=== PATIENT | female | born 1945 | race Caucasian/White ===

== ENCOUNTER → 2021-02-28 08:25 | Outpatient (CLI) | payer MEDICARE, BC, SELFPAY | PROVIDERS: PCP Family Medicine; Visit Provider Physician Assistant Medical | DX: N39.0 Urinary tract infection, site not specified (principal) | CPT/HCPCS: 87077; 87086; 87186 ==

== ENCOUNTER → 2021-03-25 11:09 | Outpatient (CLI) | payer MEDICARE, BC, SELFPAY | PROVIDERS: PCP Family Medicine; Visit Provider Family Medicine | DX: N39.0 Urinary tract infection, site not specified (principal); R30.0 Dysuria | CPT/HCPCS: 87086 ==

== ENCOUNTER → 2023-12-28 14:19 | Outpatient (CLI) | payer MEDICARE, BC, SELFPAY ==
[2023-12-28 19:16] LABS: Albumin 4.2 g/dL (3.5-5.0); BUN Creatinine Ratio 26.3 (6-22); Blood Urea Nitrogen 20 mg/dL (7-17); Calcium 9.3 mg/dL (8.4-10.2); Carbon Dioxide 27 mmol/L (22-32); Chloride 99 mmol/L (98-107); Estimated Glomerular Filt Rate > 60 mL/min (>60); Glucose 120 mg/dL (80-110); HEMOLYSIS 20 (0-50); Magnesium 2.2 mg/dL (1.6-2.3); Phosphorous 3.8 mg/dL (2.8-4.1); Potassium 4.2 mmol/L (3.4-5.1); Sodium 132 mmol/L (137-145)
== END ==
PROVIDERS: PCP Physician Assistant Medical; Visit Provider Internal Medicine Clinical Cardiac Electrophysiology
DX: Z79.899 Other long term (current) drug therapy (principal)
CPT/HCPCS: 80069; 83735

== ENCOUNTER → 2024-02-04 12:41 | Outpatient (CLI) | payer MEDICARE, BC, SELFPAY | PROVIDERS: PCP Physician Assistant Medical; Visit Provider Family Medicine | DX: N39.0 Urinary tract infection, site not specified (principal) | CPT/HCPCS: 87086 ==

== ENCOUNTER 2024-05-25 10:45 | Outpatient (RCR) | payer MEDICARE, BC, SELFPAY ==
--- NOTE | 2024-04-03 15:00 | PT.OPPOC ---
Physical, Occupational & Speech Therapy At [facility] Current Diagnoses Malignant neoplasm of unspecified site of unspecified female breast (04/03/24) Visit Care Team Role Provider Type Paola Oakley PA-C Family Provider Advanced Architecture Instructor Primary Care Provider Specialty: Medical Address: [place], [address] Email: [email or web address] LAURA Echeverria Attending Provider Non-Staff Referring Provider Specialty: Nursing Address: [address] [place] [address], [id number] Email: Plan Of Care PT-OP-B Current Condition Start: 03/30/24 16:55 Freq: Status: Active Protocol: Document 04/03/24 10:43 SAK (Rec: 04/03/24 11:06 [facility] [id number]) Current Condition History of Current Condition Onset Date 08/24 Current Complaints R breast lymphedema History of Current Condition s/p right lumpectomy and radiation finished 10/08/23 ( fast forward 5), has had significant swelling, right breast larger than left even though following radiation it was expected right breast would be smaller. Tumor was up high chest wall and pectoral muscles, reports feeling tightness in that area. Has done ROM exercises for her right am, feels has normal ROM . Also biopsy lymph node left. Now on endocrine therapy, sees medical oncologist in May. Posterior left UE numbness. Initially after surgery wore compression bra, hasn't worn for a long time, wears underwire bra. Not educated in lymphedema or exercise after surgery. Prior Treatments and Tests see above. Treatment Goals Patient/Caregiver Goals Improve soft tissue mobility and learn self massage for breast swelling. PT-OP-T Assessment and Plan Start: 03/30/24 16:55 Freq: Status: Active Protocol: Document 04/03/24 10:43 SAK (Rec: 04/04/24 12:21 [facility] [id number]) Physical Therapy Assessment Rehab Potential Rehabilitation Potential Good Evaluation Complexity Number of Personal Factors/Comorbidities 1-2 Number of Body Systems Impaired 3 Clinical Presentation at Evaluation Evolving Impairments Impairments Edema,Integument,Soft Tissue Mobility Goals Three Impairment dec chest and subaxillary tissue mobility and axillary cording present Short Term Goal (STG) Patient to be instructed in HEP for purposes of flexibility and dec axillary cording STG Duration 05/12/24 Curriculum Assistant Goal (LTG) Improve chest and subaxillary soft tissue mobility and eliminate axillary cording to allow for full motion of soft tissues in chest and subaxillary region LTG Duration 07/01/24 Two Impairment decreased scar mobility causing dec lymph flow and pain Short Term Goal (STG) Initiate scar mobility and instruct patient in self massage to scar STG Duration 05/12/24 Curriculum Assistant Goal (LTG) Improve scar mobility to WNL to facilitate improved lymphatic flow and dec pain LTG Duration 07/01/24 One Impairment lymphedema left breast and subaxillary region Short Term Goal (STG) Patient will be instructed in all aspects of lymphedema self -care to include skin care, self-massage, self-bandaging/ compression options, and lymphedema exercises. STG Duration 05/12/24 Curriculum Assistant Goal (LTG) Decrease patient?s lymphedema to a stable level (no increase or decrease greater than 1 cm over the course of 1 week), patient to be independent with all aspects of self-care for lymphedema, and will obtain appropriate compression garment for lymphedema management in the home. LTG Duration 07/01/24 Assessment Summary Assessment Patient presents to PT with lymphedema left breast and subaxillary region with axillary cording present 3 inches long and scar tissue from lumpectomy as well as subaxillary tissues with decreased mobility. Does not appear to have lymphedema in left UE, baseline measurements taken claude UE's and symmetrical. Initiated complete decongestive therapy including patient education regarding physiology of lymphedema and components of treatment. MLD initiated with education in self MLD with online resources given, patient educated in initial HEP to address soft tissue tightness, discussed compression options with trial WearEase bra issued for trial due to good fit. Patient highly motivated and demonstrated good understanding. POC was discussed and patient was in agreement. Physical Therapy Plan Frequency and Duration Frequency of Treatment 20 Duration of treatment (weeks) 12 Plan of Care Start Date 04/03/24 Plan of Care End Date 07/01/24 Therapeutic Interventions Therapeutic Interventions Lymphedema Management,Manual Therapy,Patient/Caregiver Education,Self-Care/Home Management,Soft Tissue Mobilization,Taping, Therapeutic Activities, Therapeutic Exercises Next Visit Focus/Plan Next Note Type Treatment Note Next Visit Plan Assess response to Wear Ease bra, continue with complete decongestive therapy including patient education, manual techniques including scar and axillary cording mobilization and MLD, exercise, compression . Plan of Care Dates Plan of Care Start Date 04/03/24 Plan of Care End Date 07/01/24 Electronically Signed by: Lanette Dent, PT 04/04/24 1500 If you are in agreement with this Plan of Care, please return a signed and dated copy. I have reviewed this Plan of Care and certify that the skilled therapy services above are required to meet the patient?s needs. Physician Signature Date Printed Name and Credentials Clinical Instructor Signature Printed Name and Credentials
--- NOTE | 2024-04-03 15:00 | PT.OIE ---
Addendum entered and electronically signed by Lanette Dent, PT 04/10/24 12:15: Additional diagnosis: Lymphedema, not elsewear classified. 189.0 Soft tissue disorder M79.9 Original Note: Current Diagnoses Malignant neoplasm of unspecified site of unspecified female breast (04/03/24) Visit Care Team Role Provider Type Paola Oakley PA-C Family Provider Advanced Cutting And Boning Supervisor Primary Care Provider Specialty: Medical Address: [address] [place] [address], [address] Email: [email or web address] LAURA Echeverria Attending Provider Non-Staff Referring Provider Specialty: Nursing Address: [address] [place] [address], [id number] Email: Physical Therapy Initial Evaluation PT-OP-A Visit Information Start: 03/30/24 16:55 Freq: Status: Active Protocol: Document 04/03/24 10:43 SAK (Rec: 04/03/24 11:06 [facility] [id number]) Out-Patient Physical Therapy Visit Information Visit Information Visit Type Initial Evaluation Visit Start Time 10:45 Visit Stop Time 12:13 Visit Number 1 Evaluation Information Evaluation Date 04/03/24 Precautions Precautions osteoporosis; having infusions 2x/year, a-fib PT-OP-B Current Condition Start: 03/30/24 16:55 Freq: Status: Active Protocol: Document 04/03/24 10:43 SAK (Rec: 04/03/24 11:06 [facility] [id number]) Current Condition History of Current Condition Onset Date 08/24 Current Complaints R breast lymphedema History of Current Condition s/p right lumpectomy and radiation finished 10/08/23 ( fast forward 5), has had significant swelling, right breast larger than left even though following radiation it was expected right breast would be smaller. Tumor was up high chest wall and pectoral muscles, reports feeling tightness in that area. Has done ROM exercises for her right am, feels has normal ROM . Also biopsy lymph node left. Now on endocrine therapy, sees medical oncologist in May. Posterior left UE numbness. Initially after surgery wore compression bra, hasn't worn for a long time, wears underwire bra. Not educated in lymphedema or exercise after surgery. Prior Treatments and Tests see above. Treatment Goals Patient/Caregiver Goals Improve soft tissue mobility and learn self massage for breast swelling. PT-OP-C Subjective Start: 03/30/24 16:55 Freq: Status: Active Protocol: Document 04/03/24 10:43 SAK (Rec: 04/04/24 12:21 [facility] [id number]) Patient Questionnaires Lymphedema Life Impact Score Lymphedema Score 25% OP-PT Pain Assessment Pain Assessment Grid Paper Pain Assessment Grid Completed Yes Location left breast Intensity 1 Scale Used Numeric (0 - 10) PT-OP-H Neuro Start: 03/30/24 16:55 Freq: Status: Active Protocol: Document 04/03/24 10:43 SAK (Rec: 04/04/24 12:21 [facility] [id number]) Sensation Evaluation Gross Sensation Gross Sensation Left LE Impaired,Trunk Impaired Sensation Description Numbness PT-OP-J Posture/Palpation/Skin Start: 03/30/24 16:55 Freq: Status: Active Protocol: Document 04/03/24 10:43 SAK (Rec: 04/04/24 12:21 [facility] [id number]) Palpation Assessment Location left axilla Palpation Findings Soft Tissue Tightness Palpation Details axillary cording approx 3 long left breast Palpation Findings Edema,Soft Tissue Tightness Palpation Details lateral and subaxillary Skin Assessment Edema Assessment Left Edema Type Non-Pitting Edema Appearance Puffy,Taut Subjective Edema Description Tightness Comments breast Incisional Assessment Incision Appearance/Comments well healed, no signs or symptoms of infection, poor mobility PT-OP-K Range of Motion Start: 03/30/24 16:55 Freq: Status: Active Protocol: Document 04/03/24 10:43 SAK (Rec: 04/04/24 12:21 [facility] [id number]) Cervical Spine Range of Motion Cervical Spine Active Comments WNL Shoulder Goniometric Range of Motion Shoulder Left Shoulder ROM WFL No Comments subaxillary tightness in soft tissue and palpable axillary cording on left decreased flexibility throughout chest musculature and decreased scar mobility with elevation, hor abd Right Shoulder ROM WFL Yes Shoulder ROM Limitations Shoulder ROM Limitations Soft Tissue Tightness PT-OP-N Lymphedema Start: 03/30/24 16:55 Freq: Status: Active Protocol: Document 04/03/24 10:43 SAK (Rec: 04/03/24 12:17 SAK [id number]) Lymphedema Measurements Upper Extremity Circumference Measurements Left Affected MCP 19.2 cm Dorsum of Hand 20.1 cm Wrist 16.2 cm 10 cm From Wrist Crease 18.3 cm 20 cm From Wrist Crease 22.5 cm 30 cm From Wrist Crease 25.2 cm 40 cm From Wrist Crease 26.2 cm Elbow Joint 23.7 cm Right Affected MCP 19.3 cm Dorsum of Hand 20 cm Wrist 16.1 cm 10 cm From Wrist Crease 17.8 cm 20 cm From Wrist Crease 23.6 cm 30 cm From Wrist Crease 25 cm 40 cm From Wrist Crease 26.4 cm Elbow Joint 23.6 cm - subax:85.3 nipple line:88.5 under breast:80.9 Comments Lymphedema Comments lymphedema present left breast and subaxillary region not in left UE PT-OP-Q Treatments Start: 03/30/24 16:55 Freq: Status: Active Protocol: Document 04/03/24 10:43 RICKEY (Rec: 04/04/24 12:21 [facility] [id number]) Lymphedema Treatment Manual Lymphatic Drainage Location left breast Duration 15 m Comments initial instruction for self massage Lymphedema Wrapping Materials Wear ease bra sample Other Trial WearEase bra size med for patient to trial for 2 days, good fit. Sequential Lymphedema Exercises Comments instructed in sidelying open book and arm tetlin exercises Compression Garment Assessment Compression Garment Assessment Details good fit trial Wear Ease bra Patient Education Lymphedema Pathology instructed Lymphedema Prevention instructed Lymphedema Precautions instructed Compression Garments discussed options and shown online Self Manual Lymphatic Drainage instructed and issued online [facility] resource Sequential Lymphedema Exercises instructed and issued handout PT-OP-T Assessment and Plan Start: 03/30/24 16:55 Freq: Status: Active Protocol: Document 04/03/24 10:43 RICKEY (Rec: 04/04/24 12:21 [facility] [id number]) Physical Therapy Assessment Rehab Potential Rehabilitation Potential Good Evaluation Complexity Number of Personal Factors/Comorbidities 1-2 Number of Body Systems Impaired 3 Clinical Presentation at Evaluation Evolving Impairments Impairments Edema,Integument,Soft Tissue Mobility Goals Three Impairment dec chest and subaxillary tissue mobility and axillary cording present Short Term Goal (STG) Patient to be instructed in HEP for purposes of flexibility and dec axillary cording STG Duration 05/12/24 Senior Living Goal (LTG) Improve chest and subaxillary soft tissue mobility and eliminate axillary cording to allow for full motion of soft tissues in chest and subaxillary region LTG Duration 07/01/24 Two Impairment decreased scar mobility causing dec lymph flow and pain Short Term Goal (STG) Initiate scar mobility and instruct patient in self massage to scar STG Duration 05/12/24 Senior Living Goal (LTG) Improve scar mobility to WNL to facilitate improved lymphatic flow and dec pain LTG Duration 07/01/24 One Impairment lymphedema left breast and subaxillary region Short Term Goal (STG) Patient will be instructed in all aspects of lymphedema self -care to include skin care, self-massage, self-bandaging/ compression options, and lymphedema exercises. STG Duration 05/12/24 Senior Living Goal (LTG) Decrease patient?s lymphedema to a stable level (no increase or decrease greater than 1 cm over the course of 1 week), patient to be independent with all aspects of self-care for lymphedema, and will obtain appropriate compression garment for lymphedema management in the home. LTG Duration 07/01/24 Assessment Summary Assessment Patient presents to PT with lymphedema left breast and subaxillary region with axillary cording present 3 inches long and scar tissue from lumpectomy as well as subaxillary tissues with decreased mobility. Does not appear to have lymphedema in left UE, baseline measurements taken claude UE's and symmetrical. Initiated complete decongestive therapy including patient education regarding physiology of lymphedema and components of treatment. MLD initiated with education in self MLD with online resources given, patient educated in initial HEP to address soft tissue tightness, discussed compression options with trial WearEase bra issued for trial due to good fit. Patient highly motivated and demonstrated good understanding. POC was discussed and patient was in agreement. Physical Therapy Plan Frequency and Duration Frequency of Treatment 20 Duration of treatment (weeks) 12 Plan of Care Start Date 04/03/24 Plan of Care End Date 07/01/24 Therapeutic Interventions Therapeutic Interventions Lymphedema Management,Manual Therapy,Patient/Caregiver Education,Self-Care/Home Management,Soft Tissue Mobilization,Taping, Therapeutic Activities, Therapeutic Exercises Next Visit Focus/Plan Next Note Type Treatment Note Next Visit Plan Assess response to Wear Ease bra, continue with complete decongestive therapy including patient education, manual techniques including scar and axillary cording mobilization and MLD, exercise, compression .
--- NOTE | 2024-04-05 14:55 | PT.OTN ---
Current Diagnoses Malignant neoplasm of unspecified site of unspecified female breast (04/05/24) Physical Therapy Treatment Note PT-OP-A Visit Information Start: 03/30/24 16:55 Freq: Status: Active Protocol: Document 04/05/24 10:47 SAK (Rec: 04/05/24 11:28 [facility] [id number]) Out-Patient Physical Therapy Visit Information Visit Information Visit Type Treatment Note Visit Start Time 10:47 Visit Stop Time 12:15 Visit Number 2 Evaluation Information Evaluation Date 04/03/24 Precautions Precautions osteoporosis; having infusions 2x/year, a-fib PT-OP-B Current Condition Start: 03/30/24 16:55 Freq: Status: Active Protocol: Document 04/05/24 10:47 SAK (Rec: 04/05/24 11:28 [facility] [id number]) Current Condition History of Current Condition Onset Date 08/24 Current Complaints R breast lymphedema History of Current Condition s/p right lumpectomy and radiation finished 10/08/23 ( fast forward 5), has had significant swelling, right breast larger than left even though following radiation it was expected right breast would be smaller. Tumor was up high chest wall and pectoral muscles, reports feeling tightness in that area. Has done ROM exercises for her right am, feels has normal ROM . Also biopsy lymph node left. Now on endocrine therapy, sees medical oncologist in May. Posterior left UE numbness. Initially after surgery wore compression bra, hasn't worn for a long time, wears underwire bra. Not educated in lymphedema or exercise after surgery. Prior Treatments and Tests see above. Treatment Goals Patient/Caregiver Goals Improve soft tissue mobility and learn self massage for breast swelling. PT-OP-C Subjective Start: 03/30/24 16:55 Freq: Status: Active Protocol: Document 04/05/24 10:47 SAK (Rec: 04/05/24 11:28 [facility] [id number]) OP-PT Subjective Patient Comments Patient Comments Reports liked the WEar East bra, felt beter compression and better coverage on body. Not wearing today, thinking need return. Does report a lump under right axilla, lateral chest, not sure if from exercise. Watched [facility] and followed with self massage. PT-OP-H Neuro Start: 03/30/24 16:55 Freq: Status: Active Protocol: Document 04/03/24 10:43 RICKEY (Rec: 04/04/24 12:21 [facility] [id number]) Sensation Evaluation Gross Sensation Gross Sensation Left LE Impaired,Trunk Impaired Sensation Description Numbness PT-OP-J Posture/Palpation/Skin Start: 03/30/24 16:55 Freq: Status: Active Protocol: Document 04/03/24 10:43 RICKEY (Rec: 04/04/24 12:21 [facility] [id number]) Palpation Assessment Location left axilla Palpation Findings Soft Tissue Tightness Palpation Details axillary cording approx 3 long left breast Palpation Findings Edema,Soft Tissue Tightness Palpation Details lateral and subaxillary Skin Assessment Edema Assessment Left Edema Type Non-Pitting Edema Appearance Puffy,Taut Subjective Edema Description Tightness Comments breast Incisional Assessment Incision Appearance/Comments well healed, no signs or symptoms of infection, poor mobility PT-OP-K Range of Motion Start: 03/30/24 16:55 Freq: Status: Active Protocol: Document 04/03/24 10:43 RICKEY (Rec: 04/04/24 12:21 [facility] [id number]) Cervical Spine Range of Motion Cervical Spine Active Comments WNL Shoulder Goniometric Range of Motion Shoulder Left Shoulder ROM WFL No Comments subaxillary tightness in soft tissue and palpable axillary cording on left decreased flexibility throughout chest musculature and decreased scar mobility with elevation, hor abd Right Shoulder ROM WFL Yes Shoulder ROM Limitations Shoulder ROM Limitations Soft Tissue Tightness PT-OP-N Lymphedema Start: 03/30/24 16:55 Freq: Status: Active Protocol: Document 04/03/24 10:43 RICKEY (Rec: 04/03/24 12:17 [facility] [id number]) Lymphedema Measurements Upper Extremity Circumference Measurements Left Affected MCP 19.2 cm Dorsum of Hand 20.1 cm Wrist 16.2 cm 10 cm From Wrist Crease 18.3 cm 20 cm From Wrist Crease 22.5 cm 30 cm From Wrist Crease 25.2 cm 40 cm From Wrist Crease 26.2 cm Elbow Joint 23.7 cm Right Affected MCP 19.3 cm Dorsum of Hand 20 cm Wrist 16.1 cm 10 cm From Wrist Crease 17.8 cm 20 cm From Wrist Crease 23.6 cm 30 cm From Wrist Crease 25 cm 40 cm From Wrist Crease 26.4 cm Elbow Joint 23.6 cm - subax:85.3 nipple line:88.5 under breast:80.9 Comments Lymphedema Comments lymphedema present left breast and subaxillary region not in left UE PT-OP-Q Treatments Start: 03/30/24 16:55 Freq: Status: Active Protocol: Document 04/05/24 10:47 SAK (Rec: 04/08/24 14:55 [facility] [id number]) Lymphedema Treatment Manual Lymphatic Drainage Location for left breast subaxillary, chest wall Duration 45 Comments review technique for self massage Lymphedema Wrapping Materials Patient to use Wear East bra over weekend due to good fit and coverage. Discussed PT recommendation for compression shirt vs sleeve to be able to capture subaxillary and chest region. Sequential Lymphedema Exercises Comments review deep breathing open book and arm beaver ex Compression Garment Assessment Compression Garment Assessment Details good fit trial Wear Ease bra Patient Education Lymphedema Pathology review Compression Garments further discussion Self Manual Lymphatic Drainage review Sequential Lymphedema Exercises review HEP as above PT-OP-T Assessment and Plan Start: 03/30/24 16:55 Freq: Status: Active Protocol: Document 04/05/24 10:47 SAK (Rec: 04/05/24 11:28 [facility] [id number]) Physical Therapy Assessment Impairments Impairments Edema,Integument,Soft Tissue Mobility Goals Three Impairment dec chest and subaxillary tissue mobility and axillary cording present Short Term Goal (STG) Patient to be instructed in HEP for purposes of flexibility and dec axillary cording STG Duration 05/12/24 Correction Goal (LTG) Improve chest and subaxillary soft tissue mobility and eliminate axillary cording to allow for full motion of soft tissues in chest and subaxillary region LTG Duration 07/01/24 Two Impairment decreased scar mobility causing dec lymph flow and pain Short Term Goal (STG) Initiate scar mobility and instruct patient in self massage to scar STG Duration 05/12/24 Correction Goal (LTG) Improve scar mobility to WNL to facilitate improved lymphatic flow and dec pain LTG Duration 07/01/24 One Impairment lymphedema left breast and subaxillary region Short Term Goal (STG) Patient will be instructed in all aspects of lymphedema self -care to include skin care, self-massage, self-bandaging/ compression options, and lymphedema exercises. STG Duration 05/12/24 Toe Laster Goal (LTG) Decrease patient?s lymphedema to a stable level (no increase or decrease greater than 1 cm over the course of 1 week), patient to be independent with all aspects of self-care for lymphedema, and will obtain appropriate compression garment for lymphedema management in the home. LTG Duration 07/01/24 Assessment Summary Assessment Continued CDT, loaned WEar Ease bra for weekend, measurements not taken due to not wearing. Reviewed self MLD technique, talked options compression with looking further online together and PT email [facility] as patient has already called to discuss and make appointment for garment fitting. Feel patient would benefit from Wear-Ease Shirt with pocket for foam for subaxillary region and axillary cording. Physical Therapy Plan Frequency and Duration Frequency of Treatment 20 Duration of treatment (weeks) 12 Plan of Care Start Date 04/03/24 Plan of Care End Date 07/01/24 Therapeutic Interventions Therapeutic Interventions Lymphedema Management,Manual Therapy,Patient/Caregiver Education,Self-Care/Home Management,Soft Tissue Mobilization,Taping, Therapeutic Activities, Therapeutic Exercises Next Visit Focus/Plan Next Note Type Treatment Note Next Visit Plan Continue PT for CDT to decrease breast and subaxillary edema, decrease axillary cording, and improve scar mobility. Work with [facility] in [place] to help patient obtain appropriate compression garment. Discuss subclinical stage of lymphedema
--- NOTE | 2024-04-10 16:33 | PT.OTN ---
Current Diagnoses Malignant neoplasm of unspecified site of unspecified female breast (04/10/24) Lymphedema, not elsewhere classified (04/10/24) Physical Therapy Treatment Note PT-OP-A Visit Information Start: 03/30/24 16:55 Freq: Status: Active Protocol: Document 04/10/24 10:37 SAK (Rec: 04/10/24 11:27 [facility] [id number]) Out-Patient Physical Therapy Visit Information Visit Information Visit Type Treatment Note Visit Start Time 10:46 Visit Stop Time 12:13 Visit Number 3 Evaluation Information Evaluation Date 04/03/24 Precautions Precautions osteoporosis; having infusions 2x/year, a-fib PT-OP-B Current Condition Start: 03/30/24 16:55 Freq: Status: Active Protocol: Document 04/10/24 10:37 SAK (Rec: 04/10/24 11:27 [facility] [id number]) Current Condition History of Current Condition Onset Date 08/24 Current Complaints R breast lymphedema History of Current Condition s/p right lumpectomy and radiation finished 10/08/23 ( fast forward 5), has had significant swelling, right breast larger than left even though following radiation it was expected right breast would be smaller. Tumor was up high chest wall and pectoral muscles, reports feeling tightness in that area. Has done ROM exercises for her right am, feels has normal ROM . Also biopsy lymph node left. Now on endocrine therapy, sees medical oncologist in May. Posterior left UE numbness. Initially after surgery wore compression bra, hasn't worn for a long time, wears underwire bra. Not educated in lymphedema or exercise after surgery. Prior Treatments and Tests see above. Treatment Goals Patient/Caregiver Goals Improve soft tissue mobility and learn self massage for breast swelling. PT-OP-C Subjective Start: 03/30/24 16:55 Freq: Status: Active Protocol: Document 04/10/24 10:37 SAK (Rec: 04/10/24 11:27 [facility] [id number]) OP-PT Subjective Patient Comments Patient Comments Wearing Wear Ease bra consistently during the day, removes at night, is sore in upper chest. Wore loaner compression sleeve but it slid down by the time she got home so she took off, too small. PT-OP-H Neuro Start: 03/30/24 16:55 Freq: Status: Active Protocol: Document 04/03/24 10:43 [facility] (Rec: 04/04/24 12:21 [facility] [id number]) Sensation Evaluation Gross Sensation Gross Sensation Left LE Impaired,Trunk Impaired Sensation Description Numbness PT-OP-J Posture/Palpation/Skin Start: 03/30/24 16:55 Freq: Status: Active Protocol: Document 04/03/24 10:43 SAK (Rec: 04/04/24 12:21 [facility] [id number]) Palpation Assessment Location left axilla Palpation Findings Soft Tissue Tightness Palpation Details axillary cording approx 3 long left breast Palpation Findings Edema,Soft Tissue Tightness Palpation Details lateral and subaxillary Skin Assessment Edema Assessment Left Edema Type Non-Pitting Edema Appearance Puffy,Taut Subjective Edema Description Tightness Comments breast Incisional Assessment Incision Appearance/Comments well healed, no signs or symptoms of infection, poor mobility PT-OP-K Range of Motion Start: 03/30/24 16:55 Freq: Status: Active Protocol: Document 04/03/24 10:43 [facility] (Rec: 04/04/24 12:21 [facility] [id number]) Cervical Spine Range of Motion Cervical Spine Active Comments WNL Shoulder Goniometric Range of Motion Shoulder Left Shoulder ROM WFL No Comments subaxillary tightness in soft tissue and palpable axillary cording on left decreased flexibility throughout chest musculature and decreased scar mobility with elevation, hor abd Right Shoulder ROM WFL Yes Shoulder ROM Limitations Shoulder ROM Limitations Soft Tissue Tightness PT-OP-N Lymphedema Start: 03/30/24 16:55 Freq: Status: Active Protocol: Document 04/10/24 10:37 [facility] (Rec: 04/10/24 11:27 [facility] [id number]) Lymphedema Measurements Upper Extremity Circumference Measurements Right Affected - 86.4 87.8 80.8 PT-OP-Q Treatments Start: 03/30/24 16:55 Freq: Status: Active Protocol: Document 04/10/24 16:27 [facility] (Rec: 04/10/24 16:33 [facility] [id number]) Lymphedema Treatment Manual Lymphatic Drainage Location for left breast, subaxillary, chest wall Duration 45 Comments review technique for self massage Lymphedema Wrapping Materials Patient to use Wear [place] bra over weekend due to good fit and coverage with chip bag trial as well inside bra and KT tape as below. Sequential Lymphedema Exercises Comments open book, arm [employer] [place] band, deep breathing 2 sets of 5 Compression Garment Assessment Compression Garment Assessment Details Patient further borrowing Wear Ease with fabricated chip bag inside bra to assess benefit as decides on garments. PT encourages compression sleeve, bra, and shirt. Patient Education Lymphedema Pathology educated in sublinical stages of lymphedem Lymphedema Prevention issued written material Lymphedema Precautions issued written material Compression Garments recommend sleeve, bra, and shirt Self Manual Lymphatic Drainage review Other Other trial KT tape fan strip supraaclavicular extending across scar, 2 fan strip from spine posterior around subaxillary and lateral trunk to breast. PT-OP-T Assessment and Plan Start: 03/30/24 16:55 Freq: Status: Active Protocol: Document 04/10/24 10:37 [facility] (Rec: 04/10/24 11:27 [facility] [id number]) Physical Therapy Assessment Impairments Impairments Edema,Integument,Soft Tissue Mobility Goals Three Impairment dec chest and subaxillary tissue mobility and axillary cording present Short Term Goal (STG) Patient to be instructed in HEP for purposes of flexibility and dec axillary cording STG Duration 05/12/24 Benefits Technician Goal (LTG) Improve chest and subaxillary soft tissue mobility and eliminate axillary cording to allow for full motion of soft tissues in chest and subaxillary region LTG Duration 07/01/24 Two Impairment decreased scar mobility causing dec lymph flow and pain Short Term Goal (STG) Initiate scar mobility and instruct patient in self massage to scar STG Duration 05/12/24 Benefits Technician Goal (LTG) Improve scar mobility to WNL to facilitate improved lymphatic flow and dec pain LTG Duration 07/01/24 One Impairment lymphedema left breast and subaxillary region Short Term Goal (STG) Patient will be instructed in all aspects of lymphedema self -care to include skin care, self-massage, self-bandaging/ compression options, and lymphedema exercises. STG Duration 05/12/24 Benefits Technician Goal (LTG) Decrease patient?s lymphedema to a stable level (no increase or decrease greater than 1 cm over the course of 1 week), patient to be independent with all aspects of self-care for lymphedema, and will obtain appropriate compression garment for lymphedema management in the home. LTG Duration 07/01/24 Assessment Summary Assessment Despite patient verbalizing she didn't think her ROM was improved, PT noted improved ROM with both circles and open book exercises and reduction in axillary cording to minimally palpable. Circumferential measurements increased subaxillary but decreased at nipple line, appears Wear [place] bra helpful in reducing breast lymphedema, but patient does not have subaxillary compression to facilitate further reduction. Discussed compression options with PT recommending sleeve especially for air travel, Wear Ease bra, and Wear ease shirt/axillary T that has pocket for swell spot. Patient constent with wearing compression bra. Patient instructed in stages of lymphedema including her high risk of developing in her arm as already in axilla, need to monitor for any new symptoms. Patient demonstrated good understanding. Physical Therapy Plan Frequency and Duration Frequency of Treatment 20 Duration of treatment (weeks) 12 Plan of Care Start Date 04/03/24 Plan of Care End Date 07/01/24 Therapeutic Interventions Therapeutic Interventions Lymphedema Management,Manual Therapy,Patient/Caregiver Education,Self-Care/Home Management,Soft Tissue Mobilization,Taping, Therapeutic Activities, Therapeutic Exercises Next Visit Focus/Plan Next Note Type Treatment Note Next Visit Plan Continue PT for CDT to decrease breast and subaxillary edema, decrease axillary cording, and improve scar mobility. Work with [facility] in [place] to help patient obtain appropriate compression garment.
--- NOTE | 2024-04-12 12:13 | PT.OTN ---
Current Diagnoses Malignant neoplasm of unspecified site of unspecified female breast (04/12/24) Lymphedema, not elsewhere classified (04/12/24) Physical Therapy Treatment Note PT-OP-A Visit Information Start: 03/30/24 16:55 Freq: Status: Active Protocol: Document 04/12/24 10:43 SAK (Rec: 04/12/24 11:13 [facility] [id number]) Out-Patient Physical Therapy Visit Information Visit Information Visit Type Treatment Note Visit Start Time 10:46 Visit Stop Time 12:00 Visit Number 4 Evaluation Information Evaluation Date 04/03/24 Precautions Precautions osteoporosis; having infusions 2x/year, a-fib PT-OP-B Current Condition Start: 03/30/24 16:55 Freq: Status: Active Protocol: Document 04/12/24 10:43 SAK (Rec: 04/12/24 11:13 [facility] [id number]) Current Condition History of Current Condition Onset Date 08/24 Current Complaints R breast lymphedema History of Current Condition s/p right lumpectomy and radiation finished 10/08/23 ( fast forward 5), has had significant swelling, right breast larger than left even though following radiation it was expected right breast would be smaller. Tumor was up high chest wall and pectoral muscles, reports feeling tightness in that area. Has done ROM exercises for her right am, feels has normal ROM . Also biopsy lymph node left. Now on endocrine therapy, sees medical oncologist in May. Posterior left UE numbness. Initially after surgery wore compression bra, hasn't worn for a long time, wears underwire bra. Not educated in lymphedema or exercise after surgery. Prior Treatments and Tests see above. Treatment Goals Patient/Caregiver Goals Improve soft tissue mobility and learn self massage for breast swelling. PT-OP-C Subjective Start: 03/30/24 16:55 Freq: Status: Active Protocol: Document 04/12/24 10:43 SAK (Rec: 04/12/24 11:13 [facility] [id number]) OP-PT Subjective Patient Comments Patient Comments Feels axillary cording has gone down, harder to find. [facility] hasn't gotten referral yet for compression bra. Wore loaner compression bra and chip bag, but not today, noticed improvement in sweelling; brought bra to return to PT, agreeable to use over weekend again due to not having own yet and no approval from insurance yet. PT-OP-H Neuro Start: 03/30/24 16:55 Freq: Status: Active Protocol: Document 04/03/24 10:43 SAK (Rec: 04/04/24 12:21 [facility] [id number]) Sensation Evaluation Gross Sensation Gross Sensation Left LE Impaired,Trunk Impaired Sensation Description Numbness PT-OP-J Posture/Palpation/Skin Start: 03/30/24 16:55 Freq: Status: Active Protocol: Document 04/03/24 10:43 SAK (Rec: 04/04/24 12:21 [facility] [id number]) Palpation Assessment Location left axilla Palpation Findings Soft Tissue Tightness Palpation Details axillary cording approx 3 long left breast Palpation Findings Edema,Soft Tissue Tightness Palpation Details lateral and subaxillary Skin Assessment Edema Assessment Left Edema Type Non-Pitting Edema Appearance Puffy,Taut Subjective Edema Description Tightness Comments breast Incisional Assessment Incision Appearance/Comments well healed, no signs or symptoms of infection, poor mobility PT-OP-K Range of Motion Start: 03/30/24 16:55 Freq: Status: Active Protocol: Document 04/03/24 10:43 SAK (Rec: 04/04/24 12:21 [facility] [id number]) Cervical Spine Range of Motion Cervical Spine Active Comments WNL Shoulder Goniometric Range of Motion Shoulder Left Shoulder ROM WFL No Comments subaxillary tightness in soft tissue and palpable axillary cording on left decreased flexibility throughout chest musculature and decreased scar mobility with elevation, hor abd Right Shoulder ROM WFL Yes Shoulder ROM Limitations Shoulder ROM Limitations Soft Tissue Tightness PT-OP-N Lymphedema Start: 03/30/24 16:55 Freq: Status: Active Protocol: Document 04/12/24 10:43 [facility]AK (Rec: 04/12/24 11:13 [facility] [id number]) Lymphedema Measurements Upper Extremity Circumference Measurements Right Affected - 86.2 87.8 80.8 (didn't wear compression bra today.) PT-OP-Q Treatments Start: 03/30/24 16:55 Freq: Status: Active Protocol: Document 04/12/24 10:43 SAK (Rec: 04/12/24 11:13 [facility] [id number]) Lymphedema Treatment Manual Lymphatic Drainage Location for left breast, subaxillary, chest wall Duration 35 Comments review technique for self massage Lymphedema Wrapping Materials Patient to use Wear [place] bra over weekend again due to good fit and coverage with chip bag trial as well inside bra and KT tape as below. Sequential Lymphedema Exercises Comments open book, arm [employer], deep breathing 2 sets of 5 Compression Garment Assessment Compression Garment Assessment Details Patient continues borrowing Wear Ease with fabricated chip bag inside bra with good tolerance, dec lymphedema. PT encourages compression sleeve, bra, and shirt; discussed further looking online at options Patient Education Compression Garments recommend sleeve, bra, and shirt Self Manual Lymphatic Drainage review Other Other No KT tape due to mild skin irritation near incision. PT-OP-T Assessment and Plan Start: 03/30/24 16:55 Freq: Status: Active Protocol: Document 04/12/24 10:43 [facility] (Rec: 04/12/24 11:13 [facility] [id number]) Physical Therapy Assessment Impairments Impairments Edema,Integument,Soft Tissue Mobility Goals Three Impairment dec chest and subaxillary tissue mobility and axillary cording present Short Term Goal (STG) Patient to be instructed in HEP for purposes of flexibility and dec axillary cording 04/12/24: good progress, close to symmetrical with other side STG Duration 05/12/24 Mcc Goal (LTG) Improve chest and subaxillary soft tissue mobility and eliminate axillary cording to allow for full motion of soft tissues in chest and subaxillary region LTG Duration 07/01/24 Two Impairment decreased scar mobility causing dec lymph flow and pain Short Term Goal (STG) Initiate scar mobility and instruct patient in self massage to scar 04/12/24: some improvement STG Duration 05/12/24 Mcc Goal (LTG) Improve scar mobility to WNL to facilitate improved lymphatic flow and dec pain LTG Duration 07/01/24 One Impairment lymphedema left breast and subaxillary region Short Term Goal (STG) Patient will be instructed in all aspects of lymphedema self -care to include skin care, self-massage, self-bandaging/ compression options, and lymphedema exercises. 04/12/24: good progress, mostly met STG Duration 05/12/24 Electric Accounting Machine Operator Goal (LTG) Decrease patient?s lymphedema to a stable level (no increase or decrease greater than 1 cm over the course of 1 week), patient to be independent with all aspects of self-care for lymphedema, and will obtain appropriate compression garment for lymphedema management in the home. LTG Duration 07/01/24 Assessment Summary Assessment Axillary cording not palpable today, ROM with open book and arm circles almost same as left. Improved scar mobility. Good progress. Mild skin irritation just inferior scar likely due to KT tape so held today. Patient awaiting paperwork from physician for order for compression. Further discussion rationale for compression sleeve for right UE especially during heavy physical activity or plane travel; patient to obtain. Decrease frequency to 1x/wk x 4 weeks Physical Therapy Plan Frequency and Duration Frequency of Treatment 20 Duration of treatment (weeks) 12 Plan of Care Start Date 04/03/24 Plan of Care End Date 07/01/24 Therapeutic Interventions Therapeutic Interventions Lymphedema Management,Manual Therapy,Patient/Caregiver Education,Self-Care/Home Management,Soft Tissue Mobilization,Taping, Therapeutic Activities, Therapeutic Exercises Next Visit Focus/Plan Next Note Type Treatment Note Next Visit Plan Continue PT for CDT to decrease breast and subaxillary edema, decrease axillary cording, and improve scar mobility. Work with [facility] in [place] to help patient obtain appropriate compression garment.
--- NOTE | 2024-04-20 15:18 | PT.OTN ---
Current Diagnoses Malignant neoplasm of unspecified site of unspecified female breast (04/20/24) Lymphedema, not elsewhere classified (04/20/24) Physical Therapy Treatment Note PT-OP-A Visit Information Start: 03/30/24 16:55 Freq: Status: Active Protocol: Document 04/20/24 13:37 SAK (Rec: 04/20/24 15:18 SAK [id number]) Out-Patient Physical Therapy Visit Information Visit Information Visit Type Treatment Note Visit Start Time 13:45 Visit Number 5 Evaluation Information Evaluation Date 04/03/24 Precautions Precautions osteoporosis; having infusions 2x/year, a-fib PT-OP-B Current Condition Start: 03/30/24 16:55 Freq: Status: Active Protocol: Document 04/20/24 13:37 SAK (Rec: 04/20/24 15:18 SAK [id number]) Current Condition History of Current Condition Onset Date 08/24 Current Complaints R breast lymphedema History of Current Condition s/p right lumpectomy and radiation finished 10/08/23 ( fast forward 5), has had significant swelling, right breast larger than left even though following radiation it was expected right breast would be smaller. Tumor was up high chest wall and pectoral muscles, reports feeling tightness in that area. Has done ROM exercises for her right am, feels has normal ROM . Also biopsy lymph node left. Now on endocrine therapy, sees medical oncologist in May. Posterior left UE numbness. Initially after surgery wore compression bra, hasn't worn for a long time, wears underwire bra. Not educated in lymphedema or exercise after surgery. Prior Treatments and Tests see above. Treatment Goals Patient/Caregiver Goals Improve soft tissue mobility and learn self massage for breast swelling. PT-OP-C Subjective Start: 03/30/24 16:55 Freq: Status: Active Protocol: Document 04/20/24 13:37 SAK (Rec: 04/20/24 15:18 SAK [id number]) OP-PT Subjective Patient Comments Patient Comments Went to [facility] in [place], got compression bra. Only had one in stock, will wash before wearing, feels like fits better, can't remember brand. Can still feel cording . Asking questions about raveler stiffness PT-OP-H Neuro Start: 03/30/24 16:55 Freq: Status: Active Protocol: Document 04/03/24 10:43 SAK (Rec: 04/04/24 12:21 [facility] [id number]) Sensation Evaluation Gross Sensation Gross Sensation Left LE Impaired,Trunk Impaired Sensation Description Numbness PT-OP-J Posture/Palpation/Skin Start: 03/30/24 16:55 Freq: Status: Active Protocol: Document 04/03/24 10:43 [facility] (Rec: 04/04/24 12:21 [facility] [id number]) Palpation Assessment Location left axilla Palpation Findings Soft Tissue Tightness Palpation Details axillary cording approx 3 long left breast Palpation Findings Edema,Soft Tissue Tightness Palpation Details lateral and subaxillary Skin Assessment Edema Assessment Left Edema Type Non-Pitting Edema Appearance Puffy,Taut Subjective Edema Description Tightness Comments breast Incisional Assessment Incision Appearance/Comments well healed, no signs or symptoms of infection, poor mobility PT-OP-K Range of Motion Start: 03/30/24 16:55 Freq: Status: Active Protocol: Document 04/03/24 10:43 [facility] (Rec: 04/04/24 12:21 [facility] [id number]) Cervical Spine Range of Motion Cervical Spine Active Comments WNL Shoulder Goniometric Range of Motion Shoulder Left Shoulder ROM WFL No Comments subaxillary tightness in soft tissue and palpable axillary cording on left decreased flexibility throughout chest musculature and decreased scar mobility with elevation, hor abd Right Shoulder ROM WFL Yes Shoulder ROM Limitations Shoulder ROM Limitations Soft Tissue Tightness PT-OP-N Lymphedema Start: 03/30/24 16:55 Freq: Status: Active Protocol: Document 04/20/24 13:37 [facility] (Rec: 04/20/24 15:18 [facility] [id number]) Lymphedema Measurements Upper Extremity Circumference Measurements Right Affected - 85 86 79.7 PT-OP-Q Treatments Start: 03/30/24 16:55 Freq: Status: Active Protocol: Document 04/20/24 13:37 [facility] (Rec: 04/20/24 15:18 [facility] [id number]) Self-Care/Home Management Treatment Education Other Education doorway stretch ball stretch for chest. self mob subaxillary cording; stretching, median nerve glide , rolling Lymphedema Treatment Manual Lymphatic Drainage Location for left breast, subaxillary, chest wall Duration 35 Comments review technique for self massage Lymphedema Wrapping Materials Patient has obtained ABC bra from [employer] and ordered 2 more . Sequential Lymphedema Exercises Location HEP Compression Garment Assessment Compression Garment Assessment Details Patient did not bring bra in to show PT; will launder and wear to next appoingment. Patient Education Lymphedema Prevention instructed and discussed Lymphedema Precautions instructed and discussed Compression Garments still recomend shirt for coverage in axilla; WearEase Self Manual Lymphatic Drainage review PT-OP-T Assessment and Plan Start: 03/30/24 16:55 Freq: Status: Active Protocol: Document 04/20/24 13:37 [facility] (Rec: 04/20/24 15:18 [facility] [id number]) Physical Therapy Assessment Impairments Impairments Edema,Integument,Soft Tissue Mobility Goals Three Impairment dec chest and subaxillary tissue mobility and axillary cording present Short Term Goal (STG) Patient to be instructed in HEP for purposes of flexibility and dec axillary cording 04/12/24: good progress, close to symmetrical with other side STG Duration 05/12/24 Granulator Tender Goal (LTG) Improve chest and subaxillary soft tissue mobility and eliminate axillary cording to allow for full motion of soft tissues in chest and subaxillary region LTG Duration 07/01/24 Two Impairment decreased scar mobility causing dec lymph flow and pain Short Term Goal (STG) Initiate scar mobility and instruct patient in self massage to scar 04/12/24: some improvement STG Duration 05/12/24 Granulator Tender Goal (LTG) Improve scar mobility to WNL to facilitate improved lymphatic flow and dec pain LTG Duration 07/01/24 One Impairment lymphedema left breast and subaxillary region Short Term Goal (STG) Patient will be instructed in all aspects of lymphedema self -care to include skin care, self-massage, self-bandaging/ compression options, and lymphedema exercises. 04/12/24: good progress, mostly met STG Duration 05/12/24 Fpc Goal (LTG) Decrease patient?s lymphedema to a stable level (no increase or decrease greater than 1 cm over the course of 1 week), patient to be independent with all aspects of self-care for lymphedema, and will obtain appropriate compression garment for lymphedema management in the home. LTG Duration 07/01/24 Assessment Summary Assessment Good improvement in circumferential measurements chest, breast, thorax. Improving scar mobility. Obtained bra she reports better fit and compression than WearEase. Further instruction management axillary cording, added doorway and ball stretch for chest and UE's with good understanding, HO issued. Reviewed online video for axillary cording and recommended further video viewing. Physical Therapy Plan Frequency and Duration Frequency of Treatment 20 Duration of treatment (weeks) 12 Plan of Care Start Date 04/03/24 Plan of Care End Date 07/01/24 Therapeutic Interventions Therapeutic Interventions Lymphedema Management,Manual Therapy,Patient/Caregiver Education,Self-Care/Home Management,Soft Tissue Mobilization,Taping, Therapeutic Activities, Therapeutic Exercises Next Visit Focus/Plan Next Note Type Treatment Note Next Visit Plan Continue PT for CDT to decrease breast and subaxillary edema, decrease axillary cording, and improve scar mobility.
--- NOTE | 2024-04-27 16:32 | PT.OTN ---
Current Diagnoses Malignant neoplasm of unspecified site of unspecified female breast (04/27/24) Lymphedema, not elsewhere classified (04/27/24) Physical Therapy Treatment Note PT-OP-A Visit Information Start: 03/30/24 16:55 Freq: Status: Active Protocol: Document 04/27/24 14:32 SAK (Rec: 04/27/24 15:22 [facility] [id number]) Out-Patient Physical Therapy Visit Information Visit Information Visit Type Treatment Note Visit Start Time 13:45 Visit Stop Time 14:30 Visit Number 5 Evaluation Information Evaluation Date 04/03/24 Precautions Precautions osteoporosis; having infusions 2x/year, a-fib PT-OP-B Current Condition Start: 03/30/24 16:55 Freq: Status: Active Protocol: Document 04/27/24 14:32 SAK (Rec: 04/27/24 15:22 [facility] [id number]) Current Condition History of Current Condition Onset Date 08/24 Current Complaints R breast lymphedema History of Current Condition s/p right lumpectomy and radiation finished 10/08/23 ( fast forward 5), has had significant swelling, right breast larger than left even though following radiation it was expected right breast would be smaller. Tumor was up high chest wall and pectoral muscles, reports feeling tightness in that area. Has done ROM exercises for her right am, feels has normal ROM . Also biopsy lymph node left. Now on endocrine therapy, sees medical oncologist in May. Posterior left UE numbness. Initially after surgery wore compression bra, hasn't worn for a long time, wears underwire bra. Not educated in lymphedema or exercise after surgery. Prior Treatments and Tests see above. Treatment Goals Patient/Caregiver Goals Improve soft tissue mobility and learn self massage for breast swelling. PT-OP-C Subjective Start: 03/30/24 16:55 Freq: Status: Active Protocol: Document 04/27/24 14:32 SAK (Rec: 04/27/24 15:22 [facility] [id number]) OP-PT Subjective Patient Comments Patient Comments Still trying to get Medicare approval for compression garments. Got ABC active recovery Bra through [employer], just ordered a Prarie Wear bra both self-pay, hoping to get compression sleeve as well as recommended by PT due to axillary cording. PT-OP-H Neuro Start: 03/30/24 16:55 Freq: Status: Active Protocol: Document 04/03/24 10:43 SAK (Rec: 04/04/24 12:21 [facility] [id number]) Sensation Evaluation Gross Sensation Gross Sensation Left LE Impaired,Trunk Impaired Sensation Description Numbness PT-OP-J Posture/Palpation/Skin Start: 03/30/24 16:55 Freq: Status: Active Protocol: Document 04/03/24 10:43 SAK (Rec: 04/04/24 12:21 [facility] [id number]) Palpation Assessment Location left axilla Palpation Findings Soft Tissue Tightness Palpation Details axillary cording approx 3 long left breast Palpation Findings Edema,Soft Tissue Tightness Palpation Details lateral and subaxillary Skin Assessment Edema Assessment Left Edema Type Non-Pitting Edema Appearance Puffy,Taut Subjective Edema Description Tightness Comments breast Incisional Assessment Incision Appearance/Comments well healed, no signs or symptoms of infection, poor mobility PT-OP-K Range of Motion Start: 03/30/24 16:55 Freq: Status: Active Protocol: Document 04/03/24 10:43 [facility] (Rec: 04/04/24 12:21 [facility] [id number]) Cervical Spine Range of Motion Cervical Spine Active Comments WNL Shoulder Goniometric Range of Motion Shoulder Left Shoulder ROM WFL No Comments subaxillary tightness in soft tissue and palpable axillary cording on left decreased flexibility throughout chest musculature and decreased scar mobility with elevation, hor abd Right Shoulder ROM WFL Yes Shoulder ROM Limitations Shoulder ROM Limitations Soft Tissue Tightness PT-OP-N Lymphedema Start: 03/30/24 16:55 Freq: Status: Active Protocol: Document 04/27/24 14:32 SAK (Rec: 04/27/24 15:22 [facility] [id number]) Lymphedema Measurements Upper Extremity Circumference Measurements Right Affected MCP 19.3 cm Dorsum of Hand 19.2 cm Wrist 15.8 cm 5 cm From Wrist Crease 14.6 cm 10 cm From Wrist Crease 17.5 cm 15 cm From Wrist Crease 21 cm 20 cm From Wrist Crease 23.3 cm 25 cm From Wrist Crease 23.3 cm 30 cm From Wrist Crease 24.7 cm 35 cm From Wrist Crease 26.3 cm 40 cm From Wrist Crease 28.2 cm 45 cm From Wrist Crease 29 cm Elbow Joint 22.8 cm - 83.8 86 80.2 PT-OP-Q Treatments Start: 03/30/24 16:55 Freq: Status: Active Protocol: Document 04/20/24 13:37 [facility] (Rec: 04/20/24 15:18 [facility] [id number]) Self-Care/Home Management Treatment Education Other Education doorway stretch ball stretch for chest. self mob subaxillary cording; stretching, median nerve glide , rolling Lymphedema Treatment Manual Lymphatic Drainage Location for left breast, subaxillary, chest wall Duration 35 Comments review technique for self massage Lymphedema Wrapping Materials Patient has obtained ABC bra from [employer] and ordered 2 more . Sequential Lymphedema Exercises Location HEP Compression Garment Assessment Compression Garment Assessment Details Patient did not bring bra in to show PT; will launder and wear to next appoingment. Patient Education Lymphedema Prevention instructed and discussed Lymphedema Precautions instructed and discussed Compression Garments still recomend shirt for coverage in axilla; WearEase Self Manual Lymphatic Drainage review PT-OP-T Assessment and Plan Start: 03/30/24 16:55 Freq: Status: Active Protocol: Document 04/27/24 14:32 [facility] (Rec: 04/27/24 15:22 [facility] [id number]) Physical Therapy Assessment Impairments Impairments Edema,Integument,Soft Tissue Mobility Goals Three Impairment dec chest and subaxillary tissue mobility and axillary cording present Short Term Goal (STG) Patient to be instructed in HEP for purposes of flexibility and dec axillary cording 04/12/24: good progress with ROM shoulder, subaxillary cording still present from axilla to 2/[address] way to elbow 04/27/24: Improvement noted in axillary cording today, more deep and harder to palpate, lengthened but still present. Subaxillary tissue mobility softened at least 50% after manual techniques. STG Duration 05/12/24 Senior Care Goal (LTG) Improve chest and subaxillary soft tissue mobility and eliminate axillary cording to allow for full motion of soft tissues in chest and subaxillary region LTG Duration 07/01/24 Two Impairment decreased scar mobility causing dec lymph flow and pain Short Term Goal (STG) Initiate scar mobility and instruct patient in self massage to scar 04/12/24: some improvement 04/27/24: patient doing self massage, scar mobility WNL med /lat and inf, poor mobility superiorly with puckering of skin and discomfort STG Duration 05/12/24 It Architecture Analyst Goal (LTG) Improve scar mobility to WNL to facilitate improved lymphatic flow and dec pain LTG Duration 07/01/24 One Impairment lymphedema left breast and subaxillary region Short Term Goal (STG) Patient will be instructed in all aspects of lymphedema self -care to include skin care, self-massage, self-bandaging/ compression options, and lymphedema exercises. 04/12/24: good progress, mostly met 04/27/24: goal met STG Duration 05/12/24 It Architecture Analyst Goal (LTG) Decrease patient?s lymphedema to a stable level (no increase or decrease greater than 1 cm over the course of 1 week), patient to be independent with all aspects of self-care for lymphedema, and will obtain appropriate compression garment for lymphedema management in the home. LTG Duration 07/01/24 Assessment Summary Assessment Patient making good progress with PT with improving soft tissue mobility in scar and subaxillary tissue, reduction in axillary cording, reducted circumferential measurements subaxillary, nipple line, and under breast as well as in right UE. She is ready for compression garments for right UE and chest compression. Recommend class II compression sleeve right UE as patient is very active, if not tolerated may reduce to class I. Also requires a compression bra with swell spot for breast and subaxillary region. Physical Therapy Plan Frequency and Duration Frequency of Treatment 20 Duration of treatment (weeks) 12 Plan of Care Start Date 04/03/24 Plan of Care End Date 07/01/24 Therapeutic Interventions Therapeutic Interventions Lymphedema Management,Manual Therapy,Patient/Caregiver Education,Self-Care/Home Management,Soft Tissue Mobilization,Taping, Therapeutic Activities, Therapeutic Exercises Next Visit Focus/Plan Next Note Type Treatment Note Next Visit Plan Continue PT for CDT to decrease breast and subaxillary edema, decrease axillary cording, and improve scar mobility.
--- NOTE | 2024-04-27 16:52 | PT.OPPN ---
Current Diagnoses Malignant neoplasm of unspecified site of unspecified female breast (04/27/24) Lymphedema, not elsewhere classified (04/27/24) Physical Therapy Progress Note PT-OP-A Visit Information Start: 03/30/24 16:55 Freq: Status: Active Protocol: Document 04/27/24 14:32 SAK (Rec: 04/27/24 15:22 [facility] [id number]) Out-Patient Physical Therapy Visit Information Visit Information Visit Type Treatment Note Visit Start Time 13:45 Visit Stop Time 14:30 Visit Number 5 Evaluation Information Evaluation Date 04/03/24 Precautions Precautions osteoporosis; having infusions 2x/year, a-fib PT-OP-B Current Condition Start: 03/30/24 16:55 Freq: Status: Active Protocol: Document 04/27/24 14:32 SAK (Rec: 04/27/24 15:22 [facility] [id number]) Current Condition History of Current Condition Onset Date 08/24 Current Complaints R breast lymphedema History of Current Condition s/p right lumpectomy and radiation finished 10/08/23 ( fast forward 5), has had significant swelling, right breast larger than left even though following radiation it was expected right breast would be smaller. Tumor was up high chest wall and pectoral muscles, reports feeling tightness in that area. Has done ROM exercises for her right am, feels has normal ROM . Also biopsy lymph node left. Now on endocrine therapy, sees medical oncologist in May. Posterior left UE numbness. Initially after surgery wore compression bra, hasn't worn for a long time, wears underwire bra. Not educated in lymphedema or exercise after surgery. Prior Treatments and Tests see above. Treatment Goals Patient/Caregiver Goals Improve soft tissue mobility and learn self massage for breast swelling. PT-OP-C Subjective Start: 03/30/24 16:55 Freq: Status: Active Protocol: Document 04/27/24 14:32 SAK (Rec: 04/27/24 15:22 [facility] [id number]) OP-PT Subjective Patient Comments Patient Comments Still trying to get Medicare approval for compression garments. Got ABC active recovery Bra through [employer], just ordered a [employer]arie Wear bra both self-pay, hoping to get compression sleeve as well as recommended by PT due to axillary cording. PT-OP-H Neuro Start: 03/30/24 16:55 Freq: Status: Active Protocol: Document 04/03/24 10:43 SAK (Rec: 04/04/24 12:21 [facility] [id number]) Sensation Evaluation Gross Sensation Gross Sensation Left LE Impaired,Trunk Impaired Sensation Description Numbness PT-OP-J Posture/Palpation/Skin Start: 03/30/24 16:55 Freq: Status: Active Protocol: Document 04/03/24 10:43 SAK (Rec: 04/04/24 12:21 [facility] [id number]) Palpation Assessment Location left axilla Palpation Findings Soft Tissue Tightness Palpation Details axillary cording approx 3 long left breast Palpation Findings Edema,Soft Tissue Tightness Palpation Details lateral and subaxillary Skin Assessment Edema Assessment Left Edema Type Non-Pitting Edema Appearance Puffy,Taut Subjective Edema Description Tightness Comments breast Incisional Assessment Incision Appearance/Comments well healed, no signs or symptoms of infection, poor mobility PT-OP-K Range of Motion Start: 03/30/24 16:55 Freq: Status: Active Protocol: Document 04/03/24 10:43 SAK (Rec: 04/04/24 12:21 [facility] [id number]) Cervical Spine Range of Motion Cervical Spine Active Comments WNL Shoulder Goniometric Range of Motion Shoulder Measured in Degrees Left Shoulder ROM WFL No Comments subaxillary tightness in soft tissue and palpable axillary cording on left decreased flexibility throughout chest musculature and decreased scar mobility with elevation, hor abd Right Shoulder ROM WFL Yes Shoulder ROM Limitations Shoulder ROM Limitations Soft Tissue Tightness PT-OP-N Lymphedema Start: 03/30/24 16:55 Freq: Status: Active Protocol: Document 04/27/24 14:32 SAK (Rec: 04/27/24 15:22 [facility] [id number]) Lymphedema Measurements Upper Extremity Circumference Measurements Right Affected MCP 19.3 cm Dorsum of Hand 19.2 cm Wrist 15.8 cm 5 cm From Wrist Crease 14.6 cm 10 cm From Wrist Crease 17.5 cm 15 cm From Wrist Crease 21 cm 20 cm From Wrist Crease 23.3 cm 25 cm From Wrist Crease 23.3 cm 30 cm From Wrist Crease 24.7 cm 35 cm From Wrist Crease 26.3 cm 40 cm From Wrist Crease 28.2 cm 45 cm From Wrist Crease 29 cm Elbow Joint 22.8 cm - 83.8 86 80.2 PT-OP-T Assessment and Plan Start: 03/30/24 16:55 Freq: Status: Active Protocol: Document 04/27/24 14:32 [facility] (Rec: 04/27/24 15:22 [facility] [id number]) Physical Therapy Assessment Impairments Impairments Edema,Integument,Soft Tissue Mobility Goals Three Impairment dec chest and subaxillary tissue mobility and axillary cording present Short Term Goal (STG) Patient to be instructed in HEP for purposes of flexibility and dec axillary cording 04/12/24: good progress with ROM shoulder, subaxillary cording still present from axilla to 2/[address] way to elbow 04/27/24: Improvement noted in axillary cording today, more deep and harder to palpate, lengthened but still present. Subaxillary tissue mobility softened at least 50% after manual techniques. STG Duration 05/12/24 State Editor Goal (LTG) Improve chest and subaxillary soft tissue mobility and eliminate axillary cording to allow for full motion of soft tissues in chest and subaxillary region LTG Duration 07/01/24 Two Impairment decreased scar mobility causing dec lymph flow and pain Short Term Goal (STG) Initiate scar mobility and instruct patient in self massage to scar 04/12/24: some improvement 04/27/24: patient doing self massage, scar mobility WNL med /lat and inf, poor mobility superiorly with puckering of skin and discomfort STG Duration 05/12/24 Nursing Home Goal (LTG) Improve scar mobility to WNL to facilitate improved lymphatic flow and dec pain LTG Duration 07/01/24 One Impairment lymphedema left breast and subaxillary region Short Term Goal (STG) Patient will be instructed in all aspects of lymphedema self -care to include skin care, self-massage, self-bandaging/ compression options, and lymphedema exercises. 04/12/24: good progress, mostly met 04/27/24: goal met STG Duration 05/12/24 State Editor Goal (LTG) Decrease patient?s lymphedema to a stable level (no increase or decrease greater than 1 cm over the course of 1 week), patient to be independent with all aspects of self-care for lymphedema, and will obtain appropriate compression garment for lymphedema management in the home. LTG Duration 07/01/24 Assessment Summary Assessment Patient making good progress with PT with improving soft tissue mobility in scar and subaxillary tissue, reduction in axillary cording, reducted circumferential measurements subaxillary, nipple line, and under breast as well as in right UE. She is ready for compression garments for right UE and chest compression. Recommend class II compression sleeve right UE as patient is very active, if not tolerated may reduce to class I. Also requires a compression bra with swell spot for breast and subaxillary region. Physical Therapy Plan Frequency and Duration Frequency of Treatment 20 Duration of treatment (weeks) 12 Plan of Care Start Date 04/03/24 Plan of Care End Date 07/01/24 Therapeutic Interventions Therapeutic Interventions Lymphedema Management,Manual Therapy,Patient/Caregiver Education,Self-Care/Home Management,Soft Tissue Mobilization,Taping, Therapeutic Activities, Therapeutic Exercises Next Visit Focus/Plan Next Note Type Treatment Note Next Visit Plan Continue PT for CDT to decrease breast and subaxillary edema, decrease axillary cording, and improve scar mobility.
--- NOTE | 2024-05-25 11:57 | PT.OTN ---
Current Diagnoses Malignant neoplasm of unspecified site of unspecified female breast (05/25/24) Lymphedema, not elsewhere classified (05/25/24) Physical Therapy Treatment Note PT-OP-A Visit Information Start: 03/30/24 16:55 Freq: Status: Active Protocol: Document 05/25/24 10:46 SAK (Rec: 05/25/24 11:55 SAK Laptop) Out-Patient Physical Therapy Visit Information Visit Information Visit Type Treatment Note Visit Start Time 10:46 Visit Number 6 Evaluation Information Evaluation Date 04/03/24 Precautions Precautions osteoporosis; having infusions 2x/year, a-fib PT-OP-B Current Condition Start: 03/30/24 16:55 Freq: Status: Active Protocol: Document 05/25/24 10:46 SAK (Rec: 05/25/24 11:55 SAK Laptop) Current Condition History of Current Condition Onset Date 08/24 Current Complaints R breast lymphedema History of Current Condition s/p right lumpectomy and radiation finished 10/08/23 ( fast forward 5), has had significant swelling, right breast larger than left even though following radiation it was expected right breast would be smaller. Tumor was up high chest wall and pectoral muscles, reports feeling tightness in that area. Has done ROM exercises for her right am, feels has normal ROM . Also biopsy lymph node left. Now on endocrine therapy, sees medical oncologist in May. Posterior left UE numbness. Initially after surgery wore compression bra, hasn't worn for a long time, wears underwire bra. Not educated in lymphedema or exercise after surgery. Prior Treatments and Tests see above. Treatment Goals Patient/Caregiver Goals Improve soft tissue mobility and learn self massage for breast swelling. PT-OP-C Subjective Start: 03/30/24 16:55 Freq: Status: Active Protocol: Document 05/25/24 10:46 SAK (Rec: 05/25/24 11:55 SAK Laptop) OP-PT Subjective Patient Comments Patient Comments Ordered crop top with sleeves from [employer], under arm too loose. Went to [employer] on Wednesday, tried full body with sleeves, black, will be ordering once insurance approved. Ordering Juzo sleeve, too short, [employer] Bra small too small, able to try medium. Today is last scheduled visit. Used weed eater 2 days in a row, got more swelling. Thinks cording going away better. Thinks both breasts look mostly same size now. Stretching is better. Using vitamin E oil and cups for scar mobilization PT-OP-H Neuro Start: 03/30/24 16:55 Freq: Status: Active Protocol: Document 04/03/24 10:43 SAK (Rec: 04/04/24 12:21 SAK [id number]) Sensation Evaluation Gross Sensation Gross Sensation Left LE Impaired,Trunk Impaired Sensation Description Numbness PT-OP-J Posture/Palpation/Skin Start: 03/30/24 16:55 Freq: Status: Active Protocol: Document 04/03/24 10:43 SAK (Rec: 04/04/24 12:21 SAK [id number]) Palpation Assessment Location left axilla Palpation Findings Soft Tissue Tightness Palpation Details axillary cording approx 3 long left breast Palpation Findings Edema,Soft Tissue Tightness Palpation Details lateral and subaxillary Skin Assessment Edema Assessment Left Edema Type Non-Pitting Edema Appearance Puffy,Taut Subjective Edema Description Tightness Comments breast Incisional Assessment Incision Appearance/Comments well healed, no signs or symptoms of infection, poor mobility PT-OP-K Range of Motion Start: 03/30/24 16:55 Freq: Status: Active Protocol: Document 04/03/24 10:43 SAK (Rec: 04/04/24 12:21 [facility] [id number]) Cervical Spine Range of Motion Cervical Spine Active Comments WNL Shoulder Goniometric Range of Motion Shoulder Left Shoulder ROM WFL No Comments subaxillary tightness in soft tissue and palpable axillary cording on left decreased flexibility throughout chest musculature and decreased scar mobility with elevation, hor abd Right Shoulder ROM WFL Yes Shoulder ROM Limitations Shoulder ROM Limitations Soft Tissue Tightness PT-OP-N Lymphedema Start: 03/30/24 16:55 Freq: Status: Active Protocol: Document 05/25/24 10:46 SAK (Rec: 05/25/24 11:55 SAK Laptop) Lymphedema Measurements Upper Extremity Circumference Measurements Right Affected MCP 19.3 cm Dorsum of Hand 19.2 cm Wrist 15.9 cm 5 cm From Wrist Crease 15.2 cm 10 cm From Wrist Crease 18.2 cm 15 cm From Wrist Crease 21.4 cm 20 cm From Wrist Crease 23.4 cm 25 cm From Wrist Crease 23.4 cm 30 cm From Wrist Crease 25.4 cm 35 cm From Wrist Crease 26 cm 40 cm From Wrist Crease 27 cm 45 cm From Wrist Crease 28.2 cm Elbow Joint 23.3 cm - 85 85.6 80.2 PT-OP-Q Treatments Start: 03/30/24 16:55 Freq: Status: Active Protocol: Document 05/25/24 10:46 [facility] (Rec: 05/25/24 11:55 [facility] Laptop) Lymphedema Treatment Manual Lymphatic Drainage Location for left breast, subaxillary, chest wall Duration 35 Comments review technique for self massage Lymphedema Wrapping Materials Patient wearing ABC bra and Juzo compression sleeve. Has ordered [employer] Bra and full body garment as well as longer Juzo sleeves through [employer] Compression Garment Assessment Compression Garment Assessment Details as above Patient Education Compression Garments Pt. consult with [employer] [facility] went well Other Other No further PT needs at this time. PT-OP-T Assessment and Plan Start: 03/30/24 16:55 Freq: Status: Active Protocol: Document 05/25/24 10:46 [facility] (Rec: 05/25/24 11:55 [facility] Laptop) Physical Therapy Assessment Impairments Impairments Edema,Integument,Soft Tissue Mobility Goals Three Impairment dec chest and subaxillary tissue mobility and axillary cording present Short Term Goal (STG) Patient to be instructed in HEP for purposes of flexibility and dec axillary cording 04/12/24: good progress with ROM shoulder, subaxillary cording still present from axilla to 2/[address] to elbow 04/27/24: Improvement noted in axillary cording today, more deep and harder to palpate, lengthened but still present. Subaxillary tissue mobility softened at least 50% after manual techniques. STG Duration goal met Usp Goal (LTG) Improve chest and subaxillary soft tissue mobility and eliminate axillary cording to allow for full motion of soft tissues in chest and subaxillary region LTG Duration goal met Two Impairment decreased scar mobility causing dec lymph flow and pain Short Term Goal (STG) Initiate scar mobility and instruct patient in self massage to scar 04/12/24: some improvement 04/27/24: patient doing self massage, scar mobility WNL med /lat and inf, poor mobility superiorly with puckering of skin and discomfort STG Duration goal met [employer] Goal (LTG) Improve scar mobility to WNL to facilitate improved lymphatic flow and dec pain LTG Duration goal met One Impairment lymphedema left breast and subaxillary region Short Term Goal (STG) Patient will be instructed in all aspects of lymphedema self -care to include skin care, self-massage, self-bandaging/ compression options, and lymphedema exercises. 04/12/24: good progress, mostly met 04/27/24: goal met STG Duration goal met Usp Goal (LTG) Decrease patient?s lymphedema to a stable level (no increase or decrease greater than 1 cm over the course of 1 week), patient to be independent with all aspects of self-care for lymphedema, and will obtain appropriate compression garment for lymphedema management in the home. LTG Duration goal met Assessment Summary Assessment Pt. measurements stable or decreased especially proximal right UE noted decreased measurements. Patient consultation at [facility] went well, getting appropriate compression garments ordered. Axillary cording minimally palpable. Patient compliant with self care, reviewed need to increase activity gradually ( ie yardwork), and make sure wearing compression. No further PT needs at this time. Pt. agreeable to discharge from PT today. Physical Therapy Plan Discharge Physical Therapy Discharge Reasons Goals Met
== END 2024-05-26 12:45 | disposition home or self-care (01) ==
LOC: PHYS 10:45
PROVIDERS: Family Provider Physician Assistant Medical; PCP Physician Assistant Medical; Referring Provider Nurse Practitioner; Visit Provider Nurse Practitioner
DX: C50.919 Malignant neoplasm of unspecified site of unspecified female breast (principal); I89.0 Lymphedema, not elsewhere classified
CPT/HCPCS: 97110; 97140; 97162; 97535

== ENCOUNTER → 2024-11-01 11:48 | Outpatient (CLI) | payer MEDICARE, BC, SELFPAY ==
[2024-11-01 19:33] LABS: Magnesium 2.1 mg/dL (1.6-2.3)
== END ==
PROVIDERS: Family Provider Physician Assistant Medical; PCP Physician Assistant Medical; Visit Provider Internal Medicine Clinical Cardiac Electrophysiology
DX: Z79.899 Other long term (current) drug therapy (principal)
CPT/HCPCS: 83735

== ENCOUNTER → 2024-12-19 10:39 | Outpatient (CLI) | payer MEDICARE, BC, SELFPAY ==
[2024-12-19 19:22] LABS: Appearance Urine UA CLEAR; Bilirubin Urine UA NEGATIVE (NEGATIVE); Color Urine UA YELLOW; Glucose Urine UA NEGATIVE (Negative); Ketones Urine UA NEGATIVE (NEGATIVE); Leukocyte Esterase Urine UA 3+ (NEGATIVE); Nitrite Urine UA POSITIVE (Negative); Occult Blood Urine UA 1+ (Negative); Protein Urine UA NEGATIVE (Negative); Specific Gravity Urine UA <=1.005 (1.000-1.035); Urobilinogen Urine UA 0.2 E.U./dL (0.2)
[2024-12-19 19:23] LABS: pH Urine UA 6.0 (4.5-8.0)
[2024-12-19 19:28] LABS: Culture Indicated Urine Specimen Cultured
== END ==
PROVIDERS: Family Provider Physician Assistant Medical; PCP Physician Assistant Medical; Visit Provider Internal Medicine
DX: R39.9 Unspecified symptoms and signs involving the genitourinary system (principal)
CPT/HCPCS: 81001; 87077; 87086; 87186